=== PATIENT | female | born 1945 | race Caucasian/White ===

== ENCOUNTER 2022-10-17 20:57 | Emergency (ER) | payer OTHER, BC ==
[2022-10-17 21:22] VITALS: BMI 29.2
[2022-10-17 23:37] LABS: EPITHELIAL CELLS MODERATE /hpf
[2022-10-18] MEDS ORDERED: SODIUM CHLORIDE 1,000 ML IV STA (00:56)
[2022-10-18] MEDS ORDERED: ACETAMINOPHEN 1000 MG/100 ML BAG IVPB ONE (00:56)
[2022-10-18] MEDS ORDERED: ACETAMINOPHEN INJECTION 100 ML IVPB ONE (01:15)
[2022-10-18 03:03] LABS: BASO % 1.1 % (0-2.0); EOS % 6.8 % (0-4.5); HEMATOCRIT 43.8 % (32.4-45.2); HEMOGLOBIN 14.4 GM/dL (10.7-15.3); LYMPH % 30.7 % (8-40); MCH 30.5 pg (25.7-33.7); MCHC 32.9 g/dl (32.0-36.0); MEAN CELL VOLUME 92.7 fl (80-96); MONO % 10.3 % (3.8-10.2); NEUT % 51.1 % (42.8-82.8); PLATELET COUNT 292 10^3/uL (134-434); RBC 4.72 M/mm3 (3.60-5.2); RDW 13.2 % (11.6-15.6); WHITE BLOOD COUNT 7.1 K/mm3 (4.0-10.0)
[2022-10-18 03:25] LABS: ALBUMIN 3.8 g/dl (3.4-5.0); BLOOD UREA NITROGEN 23.9 mg/dL (7-18); CALCIUM 9.6 mg/dL (8.5-10.1)
[2022-10-18 03:30] LABS: BILIRUBIN,TOTAL 0.7 mg/dL (0.2-1); TOT PROT 7.1 g/dl (6.4-8.2)
[2022-10-18 06:07] VITALS: BP 115/67; PULSE 72; RESP 18; TEMP 98.2
== END 2022-10-18 06:06 | disposition home or self-care (01) ==
LOC: FER 20:57
PROC: 3E033GC Introduction of Other Therapeutic Substance into Peripheral Vein, Percutaneous Approach (ICD-10-PCS; principal; 2022-10-17)
DX: N39.0 Urinary tract infection, site not specified (principal); B37.31 Acute candidiasis of vulva and vagina
CPT/HCPCS: 36415; 74176-TC; 80053; 81003; 81015; 85025; 87086; 87186; 93005; 99285-25